=== PATIENT | female | born 1990 | race American Indian/Alaskan Native ===

== ENCOUNTER 2021-01-29 20:13 | Emergency (ER) | payer SELFPAY ==
[2021-01-29] MEDS ORDERED: ONDANSETRON 4 MG ODT TAB PO ONE (23:20)
[2021-01-29] MEDS ORDERED: DICYCLOMINE 20 MG TAB PO ONE (23:20)
[2021-01-29] MEDS ORDERED: ACETAMINOPHEN 500 MG TAB PO ONE (23:20)
[2021-01-29 23:53] LABS: Basophils % (Auto) 0.6 % (0.0-1.8); Eosinophils % (Auto) 0.3 % (0.0-4.3); Hematocrit 38.6 % (30.3-42.9); Hemoglobin 12.7 gm/dl (10.1-14.3); Lymphocytes % (Auto) 32.6 % (13.4-35.0); Mean Corpuscular HGB Conc 33 % (30-34); Mean Corpuscular Volume 79 fl (79-97); Monocytes # (Auto) 0.4 K/mm3 (0.0-0.8); Monocytes % (Auto) 6.1 % (0.0-7.3); Platelet Count 223 K/mm3 (140-440); Red Blood Count 4.88 M/mm3 (3.65-5.03); Red Cell Distribution Width 15.1 % (13.2-15.2)
[2021-01-29 23:57] LABS: Alanine Aminotransferase 12 units/L (7-56); Albumin 4.6 g/dL (3.9-5); Blood Urea Nitrogen 7 mg/dL (7-17); Hemolysis Index 0
[2021-01-29 23:58] LABS: BUN/Creatinine Ratio 12
--- NOTE | 2021-01-30 02:59 | Cat Scan Report ---
CT ABDOMEN AND PELVIS WITH CONTRAST HISTORY: Patient complains of bilateral abdominal pain with nausea and vomiting.. COMPARISON: None. TECHNIQUE: CT images of the abdomen and pelvis were obtained following administration of intravenous contrast. All CT scans at this location are performed using CT dose reduction for ALARA by means of automated exposure control. CONTRAST: 100 ml of intravenous contrast administered. FINDINGS: Lungs/bones: Lung bases are clear. Degenerative changes in the spine with no acute osseous abnormali ty. Abdomen/pelvis: The liver, gallbladder, spleen, pancreas, adrenals, kidneys, and proximal GI tract a ppear unremarkable. There is a simple right ovarian cyst measuring 3.1 cm with small volume mildly complex pelvic free fl uid which most likely represents blood products. Uterus appears unremarkable. No acute colonic abnorm ality identified. The appendix is normal. IMPRESSION: 1. Small amount of mildly complex fluid in the pelvis most likely representing blood products and com monly seen with hemorrhagic cyst rupture. 2. Simple right ovarian cyst. Signer Name: Casey Irene MD Signed: 01/30/2021 2:54 AM Workstation Name: [id number]
[2021-01-30] MEDS ORDERED: ONDANSETRON 4 MG ODT TAB PO ONE (03:00)
[2021-01-30] MEDS ORDERED: DICYCLOMINE 20 MG TAB PO ONE (03:00)
[2021-01-30] MEDS ORDERED: ACETAMINOPHEN 500 MG TAB PO ONE (03:00)
[2021-01-30 03:08] LABS: Bilirubin,Urine NEG (Negative); Blood,Urine NEG (Negative); Color,Urine Yellow (Yellow); Protein,Urine <15 mg/dL mg/dL (Negative); RBC,Urine < 1.0 /HPF (0.0-6.0)
[2021-01-30 03:09] LABS: Mucus,Urine FEW /HPF; Urobilinogen,Urine < 2.0 mg/dL (<2.0)
--- NOTE | 2021-01-30 03:19 | Emergency Department Report ---
ED Abdominal Pain HPI - General Chief Complaint: Abdominal Pain Stated Complaint: ABD PAIN Source: patient Mode of arrival: Ambulatory Limitations: No Limitations - History of Present Illness Initial Comments: Patient is a 30 yo AA female with no past medical history who presents to the ED with c/o acute onset persistent nausea, vomiting and diffuse lower abdominal pain for the last 8 hours intermittently. Patient states that the nausea and vomiting got worse in the 6 hours. Patient states that she has not been able to keep anything down in the last 8 hours. Patient denies dizziness, diarrhea, fever, chills, dizziness, syncope, chest pain, headache, diarrhea, dysuria, ur inary urgency and frequency and vaginal bleeding, sore throat, chest pain or dyspnea MD Complaint: abdominal pain, other (nausea and vomiting) -: Sudden, hour(s) (8) Location: suprapubic Migration to: no migration Severity: moderate Severity scale (0 -10): 5 Quality: cramping, aching, sharp Improves With: nothing Worsens With: nothing Context: possible food poisoning Associated Symptoms: denies other symptoms, nausea, vomiting, anorexia. denies: diarrhea, fever, constipation, dysuria, hematemesis, hematochezia, melena - Related Data Previous Rx's Medication Instructions Recorded Last Taken Type Dicyclomine [Bentyl] 20 mg PO Q6H PRN #30 tablet 01/30/21 Unknown Rx Famotidine [Pepcid] 20 mg PO BID #40 tablet 01/30/21 Unknown Rx Ondansetron [Zofran Odt] 4 mg PO Q8HR PRN #20 tab.rapdis 01/30/21 Unknown Rx Allergies Allergy/AdvReac Type Severity Reaction Status Date / Time No Known Allergies Allergy Unverified 01/29/21 23:15 ED Review of Systems ROS: Stated complaint: ABD PAIN Other details as noted in HPI Constitutional: denies: chills, fever Eyes: denies: eye pain, eye discharge, vision change ENT: denies: ear pain, throat pain Respiratory: denies: cough, shortness of breath, wheezing Cardiovascular: denies: chest pain, palpitations Endocrine: no symptoms reported Gastrointestinal: abdominal pain, nausea, vomiting. denies: diarrhea Genitourinary: denies: urgency, dysuria, discharge Musculoskeletal: denies: back pain, joint swelling, arthralgia Skin: denies: rash, lesions Neurological: denies: headache, weakness, paresthesias Psychiatric: denies: anxiety, depression Hematological/Lymphatic: denies: easy bleeding, easy bruising ED Past Medical Hx - Medications Home Medications: Home Medications Medication Instructions Recorded Confirmed Last Taken Type Dicyclomine [Bentyl] 20 mg PO Q6H PRN #30 tablet 01/30/21 Unknown Rx Famotidine [Pepcid] 20 mg PO BID #40 tablet 01/30/21 Unknown Rx Ondansetron [Zofran Odt] 4 mg PO Q8HR PRN #20 tab.rapdis 01/30/21 Unknown Rx ED Physical Exam - General Limitations: No Limitations General appearance: alert, in no apparent distress - Head Head exam: Present: atraumatic, normocephalic, normal inspection - Eye Eye exam: Present: normal appearance, PERRL, EOMI Pupils: Present: normal accommodation - ENT ENT exam: Present: normal exam, normal orophraynx, mucous membranes moist, TM's normal bilaterally, normal external ear exam - Neck Neck exam: Present: normal inspection, full ROM - Respiratory Respiratory exam: Present: normal lung sounds bilaterally. Absent: respiratory distress, wheezes, rales, rhonchi, chest wall tenderness, accessory muscle use, decreased breath sounds - Cardiovascular Cardiovascular Exam: Present: regular rate, normal rhythm, normal heart sounds. Absent: systolic murmur, diastolic murmur, rubs, gallop - GI/Abdominal GI/Abdominal exam: Present: soft, normal bowel sounds. Absent: tenderness, guarding, rebound, hyperactive bowel sounds, hypoactive bowel sounds, organomegaly - Extremities Exam Extremities exam: Present: normal inspection, full ROM, normal capillary refill - Back Exam Back exam: Present: normal inspection, full ROM. Absent: tenderness, CVA tenderness (R), CVA tenderness (L), muscle spasm, paraspinal tenderness, vertebral tenderness - Neurological Exam Neurological exam: Present: alert, oriented X3, CN II-XII intact, normal gait, reflexes normal - Psychiatric Psychiatric exam: Present: normal affect, normal mood - Skin Skin exam: Present: warm, dry, intact, normal color. Absent: rash ED Course Vital Signs 01/29/21 23:14 Temperature 98.3 F Pulse Rate 64 Respiratory 18 Rate Blood Pressure 136/88 [Left] O2 Sat by Pulse 100 Oximetry ED Medical Decision Making - Lab Data Result diagrams: 01/29/21 23:23 01/29/21 23:23 - Medical Decision Making This is a 30 yo AA female with no past medical history who presents to the ED with c/o acute onset persistent nausea, vomiting and diffuse lower abdominal pain for the last 8 hours intermittently. Patient states that the nausea and vomiting got worse in the 6 hours. Patient states that she has not been able to keep anything down in the last 8 hours. In the ED, patient is alert and oriented x3 and is not in any distress with normal vital signs. Lab test results were reviewed and are all nonactionable. Patient was treated for nausea and vomiting and pain. On reevaluation, patient felt better and was discharged home on medications. Patient symptoms are likely due to viral gastroenteritis or GERD. Patient is advised to follow-up with his primary care physician in 3 to 5 days for reevaluation or return to the ED immediately if symptoms get worse. - Differential Diagnosis Gastroenteritis; Dehydration; UTI; GERD Critical care attestation.: If time is entered above; I have spent that time in minutes in the direct care of this critically ill patient, excluding procedure time. ED Disposition Clinical Impression: Viral gastroenteritis, Nausea and vomiting in adult patient GERD (gastroesophageal reflux disease) Qualifiers: Esophagitis presence: esophagitis presence not specified Qualified Code(s): K21.9 - Gastro-esophageal reflux disease without esophagitis Disposition: DC-01 TO HOME OR SELFCARE Is pt being admited?: No Does the pt Need Aspirin: No Condition: Stable Instructions: Abdominal Pain (ED), Viral Gastroenteritis, Adult, [id number], Nausea and Vomiting, Adult, [id number], Gastroesophageal Reflux Disease, Adult, [id number] Additional Instructions: All lab test results were reviewed and are all nonactionable. Your symptoms are likely due to viral gastroenteritis or GERD. Maintain a clear liquid diet for 12 to 24 hours. Therefore take medication with food, drink plenty of fluids and follow-up with your primary care physician in 5 to 7 days for reevaluation. Return to the ED immediately if symptoms get worse. Prescriptions: Dicyclomine [Bentyl] 20 mg PO Q6H PRN #30 tablet PRN Reason: abdominal pain Famotidine [Pepcid] 20 mg PO BID #40 tablet Ondansetron [Zofran Odt] 4 mg PO Q8HR PRN #20 tab.rapdis PRN Reason: Nausea Referrals: [facility] [Provider Group] - 3-5 Days Forms: Work/School Release Form(ED) Time of Disposition: 03:19 Print Language: CANADIAN
[2021-01-30 04:38] VITALS: BP 148/72
== END 2021-01-30 03:50 | disposition home or self-care (01) ==
LOC: ED 20:13
DX: K21.9 Gastro-esophageal reflux disease without esophagitis (principal); A08.4 Viral intestinal infection, unspecified; R11.2 Nausea with vomiting, unspecified; Z79.899 Other long term (current) drug therapy
CPT/HCPCS: 36415; 74177; 80053; 81001; 83690; 84703; 85025; 99284; Q9967; Q0162